=== PATIENT | male | born 1955 | race Caucasian/White ===

== ENCOUNTER 2017-05-17 00:59 | Inpatient (IN) | payer OTHER ==
[2017-05-17] VITALS (7 sets, daily range): BP systolic 159–199; BP diastolic 60–80
[~2017-05-17] VITALS: Ht 180.3 cm; Wt 114.3 kg
[~2017-05-17 00:59] MED LIST: AMLODIPINE BESY10 MG PO; ATENOLOL 100MG100 M2 PO; CLARITIN10 M2 PO; COZAAR100 MG; FAMOTIDINE PO; FLONASE 0.05%50 MCG NASAL; LISINOPRIL-HCT1 EAC1 PO; PREDNISONE 20 M20 M1 PO
[2017-05-17 01:53] LABS: HEMATOCRIT 39.3 % (42.0-52.0); HEMOGLOBIN 13.5 gm/dL (14.0-18.0); MCH 28.8 pg (26.0-34.0); MCHC 34.2 g/dL (28.0-37.0); MCV 84.4 fL (80.0-100.0); MPV 7.7 fl. (7.2-11.1); NUCLEATED RBCS 0 /100WBC; PLATELET COUNT* 152 thou/uL (150-400); RBC 4.66 mil/uL (4.50-6.00); RDW-CV 14.1 % (10.5-14.5); WBC 6.4 thou/uL (4.0-11.0)
[2017-05-17 01:59] LABS: CALCIUM 8.2 mg/dL (8.5-10.1); CREATININE 1.2 mg/dL (0.6-1.3)
[2017-05-17 02:00] LABS: INFLUENZA B ANTIGEN None Detected (None Detect)
[2017-05-17 02:02] LABS: POTASSIUM 2.6 mmol/L (3.5-5.1)
[2017-05-17 02:10] LABS: ALBUMIN 3.4 g/dL (3.4-5.0); TOTAL BILIRUBIN 0.4 mg/dL (<0.1-1.0); TOTAL PROTEIN 6.8 g/dL (6.4-8.2); TROPONIN-I LEVEL 0.13 ng/mL (<0.06)
[2017-05-17 04:22] LABS: ABSOLUTE BASOPHILS 0.1 thou/uL (0.0-0.2); ABSOLUTE LYMPHOCYTES 0.3 thou/uL (0.8-5.3); ABSOLUTE MONOCYTES 0.2 thou/uL (0.0-1.2); ABSOLUTE NEUTROPHILS 5.8 thou/uL (1.6-8.1); PLATELET ESTIMATE ADEQUATE
[2017-05-17 04:23] LABS: ANISOCYTOSIS Occasional
--- NOTE | 2017-05-17 06:37 | NUR ---
PATIENT ARRIVED ON UNIT AT 0400 WITH SIGNIFICANT OTHER. AMBULATED FROM COT TO BED WITH STAND BY ASSIST. 02 AT 4L. SR ON ON TELE. ISO FOR FLU POSITIVE. DENIES PAIN OR OTHER NEEDS. K REPLACEMENT IN PROGRESS. INITIAL ORDERS FOR 1 BAG AND THEN RECHECK. WILL FOLLOW PROTOCOL PER ORDERS. SKIN INTACT. FALL PRECAUTIONS AND HOURLY ROUNDING IN PLACE. WILL CONTINUE TO MONITOR.
[2017-05-17] MEDS ORDERED: TERAZOSIN HCL10 MG PO (14:58)
--- NOTE | 2017-05-17 16:36 | EKG ---
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 : 1955 Requested By: Bonnie Marin Order Number: [id number] MD: Robert Anthony Measurements Intervals [place] Rate: 89 P: 176 MD: 53 QRS: 71 QRSD: 110 T: -6 QT: 373 QTc: 454 Interpretive Statements Sinus or ectopic atrial rhythm Short MD interval Left atrial enlargement Consider anterior infarct Borderline repolarization abnormality Compared to ECG 10/13/2010 03:09:05 Ectopic atrial rhythm now present Short MD interval now present Myocardial infarct finding now present Sinus rhythm no longer present First degree AV block no longer present Electronically Signed On 05-17-2017 16:36:03 [employer]LERS by Robert Anthony [email or web address] <ELECTRONICALLY SIGNED> By: Allison Anthony MD, FACC 05/17/17 1636 6 6 Allison Anthony MD, [facility] /EPI
--- NOTE | 2017-05-17 18:54 | NUR ---
ASSUMED CARE OF PT AT 0730. PT CONTINUES TO BE A&O X4 CALM AND COOPERATIVE. PT SENIES ANY CHILLS, N/V, OR PAIN. PT HAS BEEN TRACING SB TO SR ON THE MONITOR. PT HAS BEEN SLEEPING MOST OF THE DAY BUT HAS BEEN EASILY ARROUSED. PT WAS OFFERED TO SHOWER TODAY BUT REFUSED. PT CONTINUES TO BE INDEPENDENT WITH ADL'S AND HAS REQUIRED VERY LITTLE ASSITANCE TODAY. NURSING WILL CONTINUE TO REPLACE K+ PER PROTOCOL, AND MONITOR CLOSELY.
[2017-05-18] VITALS: BP 137/71
[2017-05-18 04:00] VITALS: BP 163/68
--- NOTE | 2017-05-18 04:51 | NUR ---
ASSUMED PATIENT CARE AT 1900. PATIENT ALERT AND UP IN BED. DENIES PAIN OR OTHER NEEDS. K REPLACEMENT IN PROGRESS. 2L NC. SR TRACING. UP WITH STNAD BY. REPORTS WHEZING LATER IN SHIFT. CALL OUT TO DOC FOR ORDERS. 02 SATS REMAIN GREATER THAN 90. WILL CONTINUE TO MONITOR.
[2017-05-18 06:15] LABS: CALCIUM 7.7 mg/dL (8.5-10.1); CREATININE 0.9 mg/dL (0.6-1.3)
[2017-05-18 06:16] LABS: POTASSIUM 4.1 mmol/L (3.5-5.1)
[2017-05-18 08:00] VITALS: BP 180/65
[2017-05-18 12:00] VITALS: BP 138/57
--- NOTE | 2017-05-18 12:42 | EKG ---
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 : 1955 Requested By: Allison Anthony Order Number: [id number] MD: Robert Anthony Measurements Intervals [place] Rate: 60 P: 72 MD: 222 QRS: 73 QRSD: 104 T: 32 QT: 415 QTc: 415 Interpretive Statements Sinus rhythm Prolonged MD interval Consider anterior infarct Compared to ECG 05/17/2017 01:07:30 First degree AV block now present Ectopic atrial rhythm no longer present Short MD interval no longer present Atrial abnormality no longer present Myocardial infarct finding still present Electronically Signed On 05-18-2017 12:42:31 TOUR COORDINATOR by Robert Anthony [email or web address] <ELECTRONICALLY SIGNED> By: Allison Anthony MD, [facility] 05/18/17 1242 0345 0345 Allison Anthony MD, [facility] /EPI
--- NOTE | 2017-05-18 19:26 | NUR ---
PAITNET UP AD LINB IN ROOM. DROPLET PRECAUTIONS FOR FLU MAINTAINED. VITAL SIGNS STABLE AND PATIENT IN NOAPPARENT DISTRESS AT THIS TIME. PATINET TO BE NPO AFTER MIDNIGHT FOR STRESS TESTING IN AM ON 05/19/17. HOURLY ROUNDINGH COMPLET FOR PATIENT SAFETY. EXPECTED HOME TOMORROW IF STRESS TESTING NEGATIVE.
[2017-05-18 20:00] VITALS: BP 182/58
[2017-05-19 00:30] VITALS: BP 117/66
--- NOTE | 2017-05-19 04:00 | NUR ---
ASSUMED PT CARE AT 1930, PT IS A&OX4, PT IS ON ISOLATION FOR FLU. PT IS TRACING SB WITH A 1DAVB ON THE MONITOR, PT IS ON RA SATTING MID TO LOW 90'S. PT IS NPO AT THIS TIME FOR PENDING STRESS TEST IN THE AM. PT IS VERY EAGER TO BE D/C'D. PT IS UP AD ADRIANO I HIS ROOM AND APPEARS STABLE ON HIS FEET. BED IN LOW POSITION, CALL LIGHT IN REACH, HOURLY ROUNDING COMPLETED FOR PT SAFETY.
[2017-05-19 04:38] VITALS: BP 165/63
[2017-05-19 05:15] LABS: HEMATOCRIT 40.1 % (42.0-52.0); HEMOGLOBIN 13.7 gm/dL (14.0-18.0); MCH 28.8 pg (26.0-34.0); MCV 84.6 fL (80.0-100.0); MPV 7.4 fl. (7.2-11.1); RBC 4.75 mil/uL (4.50-6.00); RDW-CV 14.1 % (10.5-14.5); WBC 7.1 thou/uL (4.0-11.0)
[2017-05-19 06:01] LABS: CALCIUM 8.1 mg/dL (8.5-10.1); CREATININE 1.2 mg/dL (0.6-1.3); MAGNESIUM 2.3 mg/dL (1.8-2.4); POTASSIUM 4.2 mmol/L (3.5-5.1); TROPONIN-I LEVEL 0.09 ng/mL (<0.06)
[2017-05-19 08:00] VITALS: BP 197/81
[2017-05-19] MEDS ORDERED: VENTOLIN HFA 1818 GM INH (10:01)
[2017-05-19] MEDS ORDERED: OSELB75 PO (10:01)
[2017-05-19] MEDS ORDERED: ASPIR 8181 MG PO (10:04)
--- NOTE | 2017-05-19 14:46 | 2DMMODE ---
[place] [address] 2 D/M-MODE ECHOCARDIOGRAM Name: FRANCISCO LICEA Room: [facility] IN [facility]#: [id number] Admission: 05/17/17 Attend Phys: Debby Jones, Discharge: Date of : 53 Date of Service: 05/19/17 1445 Report #: [id number] THIS REPORT FOR: //name// APPROVED REPORT Study performed: 05/19/2017 12:12:26 EXAM: Comprehensive 2D, Doppler, and color-flow Echocardiogram Patient Location: In-Patient Room #: 208 Status: routine BSA: 2.34 HR: 50 bpm BP: 197/81 mmHg Rhythm: NSR Other Information Study Quality: Good Indications Chest Pain flu 2D Dimensions LVEF(%): 65.80 (>50%) IVSd: 18.53 (7-11mm) LVOT Diam: 21.60 (18-24mm) LVDd: 44.28 mm PWd: 16.14 (7-11mm) Ascending Ao: 30.11 (22-36mm) LVDs: 28.34 (25-40mm) Aortic Root: 32.64 mm Garza's LVEF: 65.80 % Volumes Left Atrial Volume (Systole) LA ESV Index: 30.40 mL/m2 Aortic Valve AoV Peak Cristhian.: 1.63 m/s AO Peak Gr.: 10.65 mmHg LVOT Max P.76 mmHg AO Mean Gr.: 5.63 mmHg LVOT Mean P.13 mmHg LVOT Max V: 1.30 m/s AO V2 VTI: 35.85 cm LVOT Mean V: 0.80 m/s SID (VTI): 3.01 cm2 LVOT V1 VTI: 29.42 [place] [address] 2 D/M-MODE ECHOCARDIOGRAM Name: FRANCISCO LICEA Room: [address] IN .R.#: [id number] Admission: 05/17/17 Attend Phys: Debby Jones, Discharge: Date of : 53 Date of Service: 05/19/17 1445 Report #: [id number] E/A Ratio: 1.36 MV Decel. Time: 188.93 ms MV E Max Cristhian.: 1.22 m/s MV PHT: 54.79 ms MVA (PHT): 4.02 cm2 TDI E/Lateral E': 15.25 E/Medial E': 12.20 Medial E' Cristhian.: 0.10 m/s Lateral E' Cristhian.: 0.08 m/s Pulmonary Valve PV Peak Cristhian.: 1.30 m/s PV Peak Gr.: 6.78 mmHg Left Ventricle The left ventricle is normal size. There is normal LV segmental wall motion. Mild to moderate concentric left ventricular hypertrophy. Left ventricular systolic function is normal. The left ventricular ejection fraction is within the normal range. LVEF is 65%. The left ventricular diastolic function is normal. Right Ventricle The right ventricle is normal size. The right ventricular systolic function is normal. Atria The left atrium size is normal. The right atrium size is normal. Aortic Valve The aortic valve is normal in structure. No aortic regurgitation is present. There is no aortic valvular stenosis. Mitral Valve The mitral valve is normal in structure. Trace mitral regurgitation. No evidence of mitral valve stenosis. Tricuspid Valve The tricuspid valve is normal in structure. There is no tricuspid valve regurgitation noted. Pulmonic Valve The pulmonary valve is normal in structure. There is no pulmonic valvular regurgitation[place] [address] 2 D/M-MODE ECHOCARDIOGRAM Name: FRANCISCO LICEA Room: [address] IN [facility]#: [id number] Admission: 05/17/17 Attend Phys: Debby Jones, Discharge: Date of : 53 Date of Service: 05/19/17 1445 Report #: [id number] The aortic root is normal in size. IVC is normal in size and collapses with >50% inspiration Pericardium There is no pericardial effusion. <Conclusion> The left ventricle is normal size. Mild to moderate concentric left ventricular hypertrophy. Left ventricular systolic function is normal. The left ventricular ejection fraction is within the normal range. The left ventricular diastolic function is normal. The right ventricle is normal size. The left atrium size is normal. The aortic valve is normal in structure. The mitral valve is normal in structure. Trace mitral regurgitation. The tricuspid valve is normal in structure. IVC is normal in size and collapses with >50% inspiration There is no pericardial effusion. There is normal LV segmental wall motion. LVEF is 65%. <ELECTRONICALLY SIGNED> By: Donnie Avitia MD, FACC 05/19/17 1445 1445 1445 Donnie Avitia MD, FACC /INF
[2017-05-19 15:23] VITALS: BP 172/59
--- NOTE | 2017-05-19 15:58 | EKG ---
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: [facility] : 1955 Requested By: Hermilo Yadav Order Number: [id number] Jake MD: Donnie Avitia Measurements Intervals [place] Rate: 48 P: 62 AL: 206 QRS: 63 QRSD: 106 T: 26 QT: 460 QTc: 411 Interpretive Statements Sinus bradycardia Consider anterior infarct Compared to ECG 05/18/2017 03:45:28 Sinus rhythm no longer present First degree AV block no longer present Myocardial infarct finding still present Electronically Signed On 05-19-2017 15:58:15 CASK MAKER by Donnie Avitia [email or web address] <ELECTRONICALLY SIGNED> By: Donnie Avitia MD, [facility] 05/19/17 1558 0452 0452 Donnie Avitia MD, [facility] /EPI
[2017-05-19 16:00] VITALS: BP 172/59
--- NOTE | 2017-05-20 17:12 | CON ---
[address] [address] CONSULTATION Name: FLAKO DAVIES Room: [address] IN M.R.#: [id number] Admission: 05/17/17 Attend Phys: Debby Jones MD Discharge: 05/19/17 Date of : 53 Report #: [id number] THIS REPORT FOR: //name// CC: Chris Jones DATE OF SERVICE: 05/17/2017 CARDIOLOGY CONSULTATION HISTORY OF PRESENT ILLNESS: I was asked by Dr. Jones to see this 61-year-old white male for an elevated troponin. This man was admitted with influenza. He has had troponins that are minimally elevated in the 0.1 range; since he came in they are in the 0.1 to 0.15 range. He has now had 4 of them and they are all in that range. He did not have any chest pain. He has never had any chest pain, he says. He had some shortness of breath and he has been mildly hypoxemic with his influenza. Additionally, this man has a history of essential hypertension. He did have a mildly abnormal EKG, but it showed only nonspecific ST-T abnormalities and there was also abnormal R-wave progression. He was in sinus rhythm; however. He had late transition of the precordial R-wave. The repolarization abnormalities were borderline. It was not a very good EKG. It will be repeated. Additionally, this man is quite hypokalemic, although he is on hydrochlorothiazide given his degree of hypokalemia, which was I believe a potassium in the low 2's, which suggests he possibly has hyperaldosteronism. Again, he has not had any chest pain or angina. His only positive cardiac risk factor is high blood pressure. He does not smoke, does not have hypercholesterolemia or diabetes or family history of heart disease, not had renal disease or peripheral vascular disease. He has never had a stroke or TIA or claudication. He has no prior heart problem. PAST MEDICAL HISTORY: His only problem has been his high blood pressure. ALLERGIES: He has no known allergies. MEDICATIONS: His current medications when he came in were amlodipine 10 mg daily, atenolol 50 mg daily, Celexa 20 mg daily, lisinopril/hydrochlorothiazide 20/12.5 mg twice a day and Hytrin 10 mg at night. SOCIAL HISTORY: He is single, does not smoke, drink or use illegal drugs. FAMILY HISTORY: Unremarkable for any cardiac history. He has not had any surgery according to him. REVIEW OF SYSTEMS: Negative except for seasonal allergies, wearing glasses [place] [address] CONSULTATION Name: FLAKO DAVIES Room: [address] IN M.R.#: [id number] Admission: 05/17/17 Attend Phys: Debby Jones MD Discharge: 05/19/17 Date of : 53 Report #: [id number] PHYSICAL EXAMINATION: GENERAL: He presents as well-developed, well-nourished white male in no acute distress. VITAL SIGNS: Pulse was 61 and regular, blood pressure is 166/61, respirations 18 and regular, temperature is 98.8. HEENT: His head was atraumatic. Eyes clear. NECK: Supple. There is no jugular venous distention or hepatojugular reflux. Thyroid is not enlarged. There is no adenopathy. SKIN: Warm and dry. Mucous membranes are moist. LUNGS: Clear to auscultation and percussion. HEART: Revealed normal first and second heart sound. There is soft S4. There is no S3. There are no murmurs, rubs, thrills, heaves or gallops. PMI is nondisplaced. ABDOMEN: Soft, flat, nontender, no palpable masses, no organomegaly. EXTREMITIES: Reveal no cyanosis, clubbing or edema. NEUROLOGIC: The patient mentated normally, talked normally, moved all extremities normally. LABORATORY DATA: I do not see a chest x-ray result on this gentleman. I believe, however, he did have a chest x-ray. I just cannot find it right now; that was unremarkable. It was an AP chest x-ray; however. I found it now; it was read as a normal single view chest. His troponins were 0.13, 0.13, and 0.15, and I believe the one at 10:00 was also 0.13. His NT-proBNP was only 923. IMPRESSION: 1. Influenza. 2. Elevated troponin that is nonspecific. I do not believe this man has had a myocardial infarction of any sort. He may have just a chronic troponin elevation. 3. Essential hypertension. 4. Abnormal electrocardiogram. 5. Hypokalemia. 6. Possible hyperaldosteronism. RECOMMENDATION: I would repeat a chest x-ray and get a PA and lateral. I will treat this man with Tamiflu and would repeat a troponin tomorrow and check an EKG tomorrow. He should get an echo and a Lexiscan Cardiolite stress test on Friday. He should have his mag level checked and he should be on electrolyte protocol to replace his potassium and get his potassium up to 4. Thank you very much for asking me to see Flako Davies. If there are any [facility] [address] [place] [address] CONSULTATION Name: FLAKO DAVIES Room: [address] IN M.R.#: [id number] Admission: 05/17/17 Attend Phys: Debby Jones MD Discharge: 05/19/17 Date of : 53 Report #: [id number] questions, please feel free to contact me. I will sign off, but if his echo or stress test is abnormal, please call us back. <ELECTRONICALLY SIGNED> By: Allison Anthony MD, FACC 05/20/17 1712 1436 [id number]. Robert Anthony MD, FACC /nt
[2017-05-20] MEDS ORDERED: MEDROLDOSEPACK PO (18:00)
[2017-05-20] MEDS ORDERED: HYDROCODON-ACE1 EAC7 PO (18:04)
--- NOTE | 2017-05-21 16:16 | EKG ---
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 : 1955 Requested By: Roque Skinner Order Number: [id number] MD: Donnie Avitia Measurements Intervals [place] Rate: 62 P: 71 RI: 210 QRS: 36 QRSD: 105 T: 32 QT: 432 QTc: 439 Interpretive Statements Sinus rhythm Abnormal inferior Q waves Anterior infarct, old Compared to ECG 05/19/2017 04:52:55 Inferior Q waves now present Q waves now present Sinus bradycardia no longer present Myocardial infarct finding still present Electronically Signed On 05-21-2017 16:16:01 WILDLIFE POLICY PROFESSIONAL by Donnie Avitia [email or web address] <ELECTRONICALLY SIGNED> By: Donnie Avitia MD, [facility] 05/21/17 1616 1710 1710 Donnie Avitia MD, [facility] /EPI
== END 2017-05-19 16:22 | disposition home or self-care (01) | DRG 193 ==
LOC: M.ERS 00:59 → M.2W 02:44 → M.TBA-ER 02:44 → M.2W 03:42
PROVIDERS: Emergency Medicine; Family Medicine; ADMIT Internal Medicine
DX: J10.1 Influenza due to other identified influenza virus with other respiratory manifestations (principal); J96.01 Acute respiratory failure with hypoxia; E87.6 Hypokalemia; I10 Essential (primary) hypertension; J20.8 Acute bronchitis due to other specified organisms; Z79.899 Other long term (current) drug therapy

== ENCOUNTER 2017-05-20 16:35 | Emergency (ER) | payer OTHER ==
[~2017-05-20] VITALS: Ht 180.3 cm; Wt 104.3 kg
[~2017-05-20 16:35] MED LIST changes: +ASPIR 8181 MG PO; +OSELB75 PO; +TERAZOSIN HCL10 MG PO; +VENTOLIN HFA 1818 GM INH
[2017-05-20 17:06] LABS: HEMATOCRIT 44.2 % (42.0-52.0); MCH 28.9 pg (26.0-34.0); MPV 7.3 fl. (7.2-11.1); NUCLEATED RBCS 0 /100WBC; PLATELET COUNT* 202 thou/uL (150-400); RDW-CV 14.1 % (10.5-14.5)
[2017-05-20 17:21] LABS: CALCIUM 8.7 mg/dL (8.5-10.1); CREATININE 1.1 mg/dL (0.6-1.3); POTASSIUM 3.3 mmol/L (3.5-5.1)
[2017-05-20 17:31] LABS: ALBUMIN 3.6 g/dL (3.4-5.0); TOTAL BILIRUBIN 0.8 mg/dL (<0.1-1.0); TOTAL PROTEIN 7.4 g/dL (6.4-8.2); TROPONIN-I LEVEL 0.08 ng/mL (<0.06)
[2017-05-20 17:56] LABS: ABSOLUTE BASOPHILS 0.1 thou/uL (0.0-0.2); ABSOLUTE LYMPHOCYTES 1.3 thou/uL (0.8-5.3); ABSOLUTE MONOCYTES 0.6 thou/uL (0.0-1.2); PLATELET ESTIMATE ADEQUATE
[2017-05-20] MEDS ORDERED: MEDROLDOSEPACK PO (18:00)
[2017-05-20] MEDS ORDERED: HYDROCODON-ACE1 EAC7 PO (18:04)
[2017-05-20 18:08] VITALS: BP 146/60
== END 2017-05-20 18:08 | disposition home or self-care (01) ==
LOC: M.ERS 16:35
PROVIDERS: Emergency Medicine
DX: I10 Essential (primary) hypertension (principal); J09.X2 Influenza due to identified novel influenza A virus with other respiratory manifestations; G47.30 Sleep apnea, unspecified

== ENCOUNTER 2020-03-16 10:34 | Emergency (ER) | payer OTHER ==
[~2020-03-16] VITALS: Ht 180.3 cm; Wt 104.3 kg
[~2020-03-16 10:34] MED LIST changes: +HYDROCODON-ACE1 EAC7 PO; +MEDROLDOSEPACK PO
[2020-03-16] MEDS ORDERED: VITAMIN D31250 MC1 PO (10:47)
[2020-03-16] MEDS ORDERED: CELEXA 10 MG TA10 M1 PO (10:47)
[2020-03-16] MEDS ORDERED: KEFLEX500 M1 PO (11:41)
[2020-03-16 11:55] VITALS: BP 198/62
== END 2020-03-16 11:57 | disposition home or self-care (01) ==
LOC: M.ERS 10:34
DX: S61.213A Laceration without foreign body of left middle finger without damage to nail, initial encounter (principal); G47.30 Sleep apnea, unspecified; W26.0XXA Contact with knife, initial encounter; Y93.89 Activity, other specified; Y92.89 Other specified places as the place of occurrence of the external cause; Y99.8 Other external cause status